=== PATIENT | male | born 1980 | race Caucasian/White ===

== ENCOUNTER 2020-03-05 01:14 | Emergency (ER) | payer BC, OTHER ==
[~2020-03-05] VITALS: Ht 177.8 cm; Wt 86.9 kg
[2020-03-05 01:35] VITALS: BP 136/88
== END 2020-03-05 03:01 | disposition home or self-care (01) ==
LOC: ER 01:16
DX: K04.7 Periapical abscess without sinus (principal)

== ENCOUNTER 2020-06-03 12:12 | Emergency (ER) | payer BC ==
[~2020-06-03] VITALS: Ht 180.3 cm; Wt 83.9 kg
[2020-06-03 12:20] VITALS: BP 123/85
== END 2020-06-03 14:24 | disposition home or self-care (01) ==
LOC: ER 12:12
DX: U07.1 COVID-19 (principal); J20.8 Acute bronchitis due to other specified organisms
CPT/HCPCS: 71045